=== PATIENT | male | born 1960 | race Caucasian/White ===

== ENCOUNTER → 2023-12-11 07:29 | Outpatient (REF) | payer MEDICARE, OTHER, SELFPAY ==
[2023-12-11 08:04] LABS: % Basophils 0.5 % (0-2); % Eosinophils 2.7 % (0-6); % Immature Granulocytes 0.2 % (0-0.5); % Lymphocytes 33.8 % (20.5-51.1); % Monocytes 7.2 % (1.7-9.3); % Neutrophils 55.6 % (42.2-75.2); Absolute Eosinophils 0.1 10^3/uL (0-0.7); Absolute Lymphocytes 1.4 10^3/uL (1.2-3.4); Absolute Monocytes 0.3 10^3/uL (0.1-0.6); Absolute Neutrophils 2.3 10^3/uL (1.4-6.5); Hemoglobin 15.4 g/dL (13.0-18.0); Mean Corp Hgb Conc. 34.2 g/dL (33.0-37.0); Mean Corpuscular Hgb 32.6 pg (27.0-31.0); Mean Corpuscular Volume 95.1 fL (80.0-94.0); Mean Platelet Volume 9.5 fL (7.4-10.4); Nucleated Red Blood Cells % 0 % (-); Platelet Count 230 10^3/uL (130-400); Red Blood Cell Count 4.73 10^6/uL (4.70-6.10); Reticulocyte Count 0.8 % (0.4-2.8); White Blood Cell Count 4.1 10^3/uL (4.8-10.8)
[2023-12-11 08:34] LABS: Iron 95 ug/dl (49-181)
[2023-12-11 08:43] LABS: Percent Saturation 33 % (20-50); Total Iron Binding Capacity 280 ug/dl (261-462)
[2023-12-11 11:56] LABS: Folate 10.9 ng/ml (2.76-20)
[2023-12-11 13:10] LABS: Vitamin B12 802 pg/ml (239-931)
== END ==
LOC: REG 07:29
PROVIDERS: ATTENDING PHYSICIAN Internal Medicine Hematology & Oncology
DX: D51.9 Vitamin B12 deficiency anemia, unspecified (principal)
CPT/HCPCS: 36415; 82607; 82728; 82746; 83540; 83550; 85025; 85045

== ENCOUNTER → 2024-03-27 08:00 | Outpatient (REF) | payer MEDICARE, OTHER, SELFPAY ==
[2024-03-27 09:36] LABS: % Basophils 0.6 % (0-2); % Eosinophils 2.5 % (0-6); % Lymphocytes 34.3 % (20.5-51.1); % Neutrophils 52.6 % (42.2-75.2); Absolute Eosinophils 0.1 10^3/uL (0-0.7); Absolute Lymphocytes 1.2 10^3/uL (1.2-3.4); Absolute Monocytes 0.4 10^3/uL (0.1-0.6); Absolute Neutrophils 1.9 10^3/uL (1.4-6.5); Mean Corp Hgb Conc. 34.9 g/dL (33.0-37.0); Mean Corpuscular Hgb 32.5 pg (27.0-31.0); Mean Corpuscular Volume 93.3 fL (80.0-94.0); Mean Platelet Volume 9.7 fL (7.4-10.4); Nucleated Red Blood Cells % 0 % (-); Platelet Count 239 10^3/uL (130-400); Red Blood Cell Count 4.61 10^6/uL (4.70-6.10); Red Cell Dist. Width 12.4 % (11.5-14.5); White Blood Cell Count 3.6 10^3/uL (4.8-10.8)
[2024-03-27 10:09] LABS: ALT (SGPT) 39 U/L (0-50); AST (SGOT) 54 U/L (17-59); Alkaline Phosphatase 86 U/L (38-126); Blood Urea Nitrogen 14 mg/dl (9-20); Calcium 9.6 mg/dl (8.4-10.2); Carbon Dioxide 30 mmol/L (22-30); Chloride 102 mmol/L (98-107); Glucose 98 mg/dl (70-99); HDL Cholesterol 73 mg/dl; LDL Cholesterol, Calculated 92 mg/dl; Potassium 4.6 mmol/L (3.5-5.1); Sodium 139 mmol/L (135-145); Total Bilirubin 2.2 mg/dl (0.2-1.3); Total Cholesterol 177 mg/dl (50-199); Total Protein 6.6 g/dl (6.3-8.2); Triglyceride 63 mg/dl (10-149); Very Low Density Lipoprotein 12 mg/dl (0-30); eGFR > 60.00
[2024-03-27 10:37] LABS: PSA, Total - Screen 1.13 ng/ml (0.0-4.0); TSH 1.79 uIU/ml (0.47-4.68)
== END ==
LOC: REG 08:00
PROVIDERS: ATTENDING PHYSICIAN Family Medicine
DX: Z12.5 Encounter for screening for malignant neoplasm of prostate (principal); R79.9 Abnormal finding of blood chemistry, unspecified; Z00.00 Encounter for general adult medical examination without abnormal findings; R94.6 Abnormal results of thyroid function studies
CPT/HCPCS: 36415; 80053; 80061; 84443; 85025; G0103

== ENCOUNTER → 2024-06-28 07:37 | Outpatient (REF) | payer MEDICARE, OTHER, SELFPAY ==
[2024-06-28 08:16] LABS: % Basophils 0.8 % (0-2); % Eosinophils 3.1 % (0-6); % Immature Granulocytes 0.3 % (0-0.5); % Lymphocytes 31.5 % (20.5-51.1); % Monocytes 8.7 % (1.7-9.3); % Neutrophils 55.6 % (42.2-75.2); Absolute Eosinophils 0.1 10^3/uL (0-0.7); Absolute Lymphocytes 1.2 10^3/uL (1.2-3.4); Absolute Monocytes 0.3 10^3/uL (0.1-0.6); Absolute Neutrophils 2.2 10^3/uL (1.4-6.5); Hematocrit 43.3 % (39.0-52.0); Hemoglobin 15.3 g/dL (13.0-18.0); Mean Corp Hgb Conc. 35.3 g/dL (33.0-37.0); Mean Corpuscular Hgb 33.3 pg (27.0-31.0); Mean Corpuscular Volume 94.3 fL (80.0-94.0); Mean Platelet Volume 9.6 fL (7.4-10.4); Nucleated Red Blood Cells % 0 % (-); Platelet Count 227 10^3/uL (130-400); Red Blood Cell Count 4.59 10^6/uL (4.70-6.10); Red Cell Dist. Width 12.2 % (11.5-14.5); White Blood Cell Count 3.9 10^3/uL (4.8-10.8)
[2024-06-28 08:55] LABS: Iron 137 ug/dl (49-181)
[2024-06-28 09:06] LABS: Percent Saturation 54 % (20-50); Total Iron Binding Capacity 250 ug/dl (261-462)
[2024-06-28 09:28] LABS: Ferritin 83.3 ng/ml (17.9-464.0)
[2024-06-28 10:00] LABS: Folate 12.3 ng/ml (2.76-20); Vitamin B12 683 pg/ml (239-931)
== END ==
LOC: REG 07:37
PROVIDERS: ATTENDING PHYSICIAN Internal Medicine Hematology & Oncology; FAMILY PHYSICIAN Family Medicine
DX: D51.9 Vitamin B12 deficiency anemia, unspecified (principal)
CPT/HCPCS: 36415; 82607; 82728; 82746; 83540; 83550; 85025

== ENCOUNTER → 2024-11-09 07:24 | Outpatient (REF) | payer MEDICARE, OTHER, SELFPAY | LOC: HWRAD 07:24 | PROVIDERS: ATTENDING PHYSICIAN Internal Medicine; FAMILY PHYSICIAN Family Medicine | DX: R10.13 Epigastric pain (principal) | CPT/HCPCS: 76700 ==

== ENCOUNTER → 2025-01-08 07:39 | Outpatient (REF) | payer MEDICARE, OTHER, SELFPAY ==
[2025-01-08 08:49] LABS: % Basophils 0.7 % (0-2); % Eosinophils 3.6 % (0-6); % Immature Granulocytes 0.2 % (0-0.5); % Lymphocytes 27.9 % (20.5-51.1); % Monocytes 8.6 % (1.7-9.3); Absolute Eosinophils 0.2 10^3/uL (0-0.7); Absolute Lymphocytes 1.2 10^3/uL (1.2-3.4); Absolute Monocytes 0.4 10^3/uL (0.1-0.6); Absolute Neutrophils 2.5 10^3/uL (1.4-6.5); Hematocrit 43.9 % (39.0-52.0); Hemoglobin 15.1 g/dL (13.0-18.0); Mean Corp Hgb Conc. 34.4 g/dL (33.0-37.0); Mean Corpuscular Hgb 32.8 pg (27.0-31.0); Mean Corpuscular Volume 95.2 fL (80.0-94.0); Mean Platelet Volume 10.2 fL (7.4-10.4); Nucleated Red Blood Cells % 0 % (-); Platelet Count 229 10^3/uL (130-400); Red Blood Cell Count 4.61 10^6/uL (4.70-6.10); Red Cell Dist. Width 12.4 % (11.5-14.5); White Blood Cell Count 4.2 10^3/uL (4.8-10.8)
[2025-01-08 10:45] LABS: Folate 6.3 ng/ml (2.76-20); Vitamin B12 833 pg/ml (239-931)
== END ==
LOC: REG 07:39
PROVIDERS: ATTENDING PHYSICIAN Internal Medicine Hematology & Oncology; FAMILY PHYSICIAN Family Medicine
DX: D51.9 Vitamin B12 deficiency anemia, unspecified (principal)
CPT/HCPCS: 36415; 82607; 82746; 85025

== ENCOUNTER → 2025-05-18 16:41 | Outpatient (REF) | payer MEDICARE, OTHER, SELFPAY | LOC: RAD 16:41 | PROVIDERS: ATTENDING PHYSICIAN Family Medicine; FAMILY PHYSICIAN Family Medicine | DX: M25.561 Pain in right knee (principal) | CPT/HCPCS: 73564 ==

== ENCOUNTER → 2025-06-03 08:26 | Outpatient (REF) | payer MEDICARE, OTHER, SELFPAY ==
[2025-06-03 09:40] LABS: Hematocrit 43.9 % (39.0-52.0); Hemoglobin 14.8 g/dL (13.0-18.0); Mean Corp Hgb Conc. 33.7 g/dL (33.0-37.0); Mean Corpuscular Volume 96.1 fL (80.0-94.0); Nucleated Red Blood Cells % 0 % (-); Platelet Count 242 10^3/uL (130-400); Red Cell Dist. Width 12.6 % (11.5-14.5)
[2025-06-03 11:13] LABS: Folate > 20.0 ng/ml (2.76-20); Vitamin B12 903 pg/ml (239-931)
== END ==
LOC: REG 08:26
PROVIDERS: ATTENDING PHYSICIAN Internal Medicine Hematology & Oncology; FAMILY PHYSICIAN Family Medicine
DX: D51.3 Other dietary vitamin B12 deficiency anemia (principal); E55.9 Vitamin D deficiency, unspecified; D50.8 Other iron deficiency anemias; D50.9 Iron deficiency anemia, unspecified; D53.9 Nutritional anemia, unspecified; D51.0 Vitamin B12 deficiency anemia due to intrinsic factor deficiency; K90.9 Intestinal malabsorption, unspecified; D51.9 Vitamin B12 deficiency anemia, unspecified
CPT/HCPCS: 36415; 82607; 82746; 85025

== ENCOUNTER → 2025-06-21 08:17 | Outpatient (REF) | payer MEDICARE, OTHER, SELFPAY ==
[2025-06-21 16:08] LABS: Folate > 20.0 ng/ml (2.76-20); Vitamin B12 996 pg/ml (239-931)
== END ==
LOC: REG 08:17
PROVIDERS: ATTENDING PHYSICIAN Internal Medicine Hematology & Oncology; FAMILY PHYSICIAN Family Medicine
DX: D51.3 Other dietary vitamin B12 deficiency anemia (principal); E55.9 Vitamin D deficiency, unspecified; D50.8 Other iron deficiency anemias; D50.9 Iron deficiency anemia, unspecified; D53.9 Nutritional anemia, unspecified; D51.0 Vitamin B12 deficiency anemia due to intrinsic factor deficiency; K90.9 Intestinal malabsorption, unspecified; D51.9 Vitamin B12 deficiency anemia, unspecified
CPT/HCPCS: 36415; 82607; 82746

== ENCOUNTER 2025-07-08 06:29 | Day surgery (SDC) | payer MEDICARE, OTHER, SELFPAY | END 2025-07-08 12:11 | disposition home or self-care (01) | LOC: GI 06:29 | PROVIDERS: ATTENDING PHYSICIAN Internal Medicine | DX: R10.13 Epigastric pain (principal); R13.10 Dysphagia, unspecified; K44.9 Diaphragmatic hernia without obstruction or gangrene; K20.90 Esophagitis, unspecified without bleeding | CPT/HCPCS: 43239; 88305 ==

== ENCOUNTER → 2025-07-11 07:37 | Outpatient (REF) | payer MEDICARE, OTHER, SELFPAY ==
[2025-07-11 11:04] LABS: Folate > 20.0 ng/ml (2.76-20); Vitamin B12 860 pg/ml (239-931)
== END ==
LOC: REG 07:37
PROVIDERS: ATTENDING PHYSICIAN Internal Medicine Hematology & Oncology; FAMILY PHYSICIAN Family Medicine
DX: D51.3 Other dietary vitamin B12 deficiency anemia (principal); E55.9 Vitamin D deficiency, unspecified; D50.8 Other iron deficiency anemias; D50.9 Iron deficiency anemia, unspecified; D53.9 Nutritional anemia, unspecified; D51.0 Vitamin B12 deficiency anemia due to intrinsic factor deficiency; K90.9 Intestinal malabsorption, unspecified; D51.9 Vitamin B12 deficiency anemia, unspecified
CPT/HCPCS: 36415; 82607; 82746

== ENCOUNTER → 2025-08-27 07:56 | Outpatient (REF) | payer MEDICARE, OTHER, SELFPAY ==
[2025-08-27 10:19] LABS: ALT (SGPT) 29 U/L (0-50); AST (SGOT) 36 U/L (17-59); Albumin 4.3 g/dl (3.5-5.0); Alkaline Phosphatase 123 U/L (38-126); Blood Urea Nitrogen 16 mg/dl (9-20); Calcium 9.7 mg/dl (8.4-10.2); Carbon Dioxide 30 mmol/L (22-30); Chloride 102 mmol/L (98-107); Glucose 91 mg/dl (70-99); HDL Cholesterol 77 mg/dl; Iron 87 ug/dl (49-181); LDL Cholesterol, Calculated 80 mg/dl; Potassium 4.6 mmol/L (3.5-5.1); Sodium 133 mmol/L (135-145); Total Protein 7.1 g/dl (6.3-8.2); Very Low Density Lipoprotein 13 mg/dl (0-30); eGFR > 60.00
[2025-08-27 10:23] LABS: Hematocrit 44.1 % (39.0-52.0); Hemoglobin 14.9 g/dL (13.0-18.0); Mean Corp Hgb Conc. 33.8 g/dL (33.0-37.0); Mean Corpuscular Volume 95.5 fL (80.0-94.0); Nucleated Red Blood Cells % 0 % (-); Platelet Count 262 10^3/uL (130-400); Red Cell Dist. Width 12.6 % (11.5-14.5)
[2025-08-27 10:28] LABS: Total Iron Binding Capacity 281 ug/dl (261-462)
[2025-08-27 10:47] LABS: PSA, Total - Diagnostic 1.09 ng/ml (0.0-4.0); Vitamin D, 25-OH*** 60.0 ng/mL (30-80)
[2025-08-27 10:51] LABS: Ferritin 80.0 ng/ml (17.9-464.0)
[2025-08-27 11:20] LABS: Vitamin B12 792 pg/ml (239-931)
[2025-08-27 13:32] LABS: TSH 2.29 uIU/ml (0.47-4.68)
== END ==
LOC: REG 07:56
PROVIDERS: ATTENDING PHYSICIAN Family Medicine
DX: E53.8 Deficiency of other specified B group vitamins (principal); Z00.00 Encounter for general adult medical examination without abnormal findings; D50.9 Iron deficiency anemia, unspecified; R79.9 Abnormal finding of blood chemistry, unspecified; Z79.899 Other long term (current) drug therapy; N40.1 Benign prostatic hyperplasia with lower urinary tract symptoms; R35.1 Nocturia
CPT/HCPCS: 36415; 80053; 80061; 82306; 82607; 82728; 83540; 83550; 84153; 84443; 85025

== ENCOUNTER → 2025-09-23 11:55 | Outpatient (REF) | payer MEDICARE, OTHER, SELFPAY | LOC: RAD 11:55 | PROVIDERS: ATTENDING PHYSICIAN Physician Assistant Medical; FAMILY PHYSICIAN Family Medicine | DX: M54.2 Cervicalgia (principal) | CPT/HCPCS: 72050 ==